=== PATIENT | male | born 1970 | race Caucasian/White ===

== ENCOUNTER 2018-11-02 11:28 | Emergency (ER) | payer BC ==
--- OUTSIDE RECORDS SUMMARY | 2018-11-02 11:35 | XMS REPORT | Continuity of Care Document ---
:1970 External Reference #:[id number] Author Name Irina Hawkinslyn Care Team Providers Name Role Phone Remberto Do NP Primary Care Physician Unavailable Payers Date Identification Numbers Payment Provider Subscriber Effective: 2016 Policy Number: [id number] BS Emile Manzanares PayID: [id number] [address] [address] [place] [address] Effective: 2013 Policy Number: [id number] BS Emile Manzanares Expires: 2016 PayID: [id number] [address] [address] [place] Bishop [address] Expires: 2015 Policy Number: [id number] BS Of DIAN Manzanares PayID: [id number] [address] [address] [place] [address] Problems Active Problems Provider Date Shoulder joint pain Levar Amaro MD Onset: 06/30/2015 Essential hypertension Remberto Do NP Onset: 07/28/2017 Gout Remberto Do NP Onset: 07/28/2017 Obstructive sleep apnea syndrome Judy Youngblood DNP, RN, MEDIA RELATIONS SPECIALIST-BC Onset: Family History Date Family Member(s) Observation Comments General Diabetes Type II Mother and Grandfather Father Seizure Disorder Father Blood clots Father Snoring Mother Diabetes Type II Mother Hypertension Social History Type Date Description Comments Sex Unknown Marital Status Lives With Lives With Son In college Lives With 2 dogs 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 Tobacco Use Start: Unknown Light tobacco smoker 8 per day (10 or fewer cigarettes/day) Smoking Status Reviewed: 10/07/18 Light tobacco smoker 8 per day (10 or fewer cigarettes/day) ETOH Use Drinks 2 Alcoholic 1-3 Beverages Per Week Tobacco Use Start: Unknown Light tobacco smoker about 8 cigs per (10 or fewer day, started 2002 cigarettes/day) Recreational Drug Use Sporadically uses Helps with sleep Marijuana Exercise Type/Frequency Exercises regularly Exercise Type/Frequency Running 4-5x per week Exercise Type/Frequency Hiking, hunting 1-2x per week, seasonal, more in summer Exercise Type/Frequency Yoga 3-4x per week Allergies, Adverse Reactions, Alerts Description No Known Drug Allergies Medications Active Medications SIG Qnty Indications Ordering Date Provider Mandibular please fabricate G47.33 Melly 07/08/2018 Advancement Device mandibular advance CAROLE Wallace device for mild Device sleep apnea Fluoxetine HCL take 1 and 1/2 135tabs F32.89 Remberto Do NP 06/30/2017 20mg tablets by mouth Tablets one time daily Omeprazole 1 by mouth every 30caps K21.9 Kory Waterman, 12/13/2016 20mg day as needed for M.D. Capsules DR jones Fluticasone Use 2 Sprays In 16units R09.81 Remberto Do NP 10/04/2016 Propionate Each Nostril One 50mcg/Act Time A Day as Suspension needed Indomethacin take one by mouth 150caps Kory Waterman, 09/07/2016 25mg in the morning, M.D. Capsules one by mouth at noon, one by mouth at dinner time, and one by mouth at bedtime as needed Allopurinol take one 90tabs Rehan Borja, 12/06/2010 300mg capsule/tablet MEDIA RELATIONS SPECIALIST Tablets daily by mouth Allopurinol take 2 180tabs Kory Waterman, 12/06/2010 100mg capsule/tablet M.D. Tablets daily by mouth (in addition to the 300mg tab of allopurinol) Cortes Pills As needed Unknown Cortes Juice As needed Unknown Uricel OTC prn Unknown History Medications Amlodipine Besylate 1 by mouth I10 Remberto Do NP 07/28/2017 - 5mg every day 07/28/2017 Tablets Amlodipine Besylate 1 by mouth 30tabs I10 Remberto Do NP 06/30/2017 - 5mg every day 07/28/2017 Tablets Clotrimazole apply twice 28.350gm B35.3 Kory Waterman 12/13/2016 - Anti-Fungal daily as needed M.D. 10/29/2017 1% Cream Doxycycline Hyclate Kory Figueredo, 10/02/2016 - 10/04/[address] Powell 1 po bid 60tabs Jairo Chowdary, 12/06/2010 - 500mg Tablets M.D. 06/28/2015 Advil as needed Unknown - 200mg Capsules 10/04/2016 Vital Signs Date Vital Result Comment 10/07/2018 2:26pm Height 68.25 inches 5'8.25" Weight 200.38 lb Heart Rate 70 /min BP Systolic Sitting 132 mmHg Lue large cuff BP Diastolic Sitting 94 mmHg Lue large cuff Respiratory Rate 12 /min O2 % BldC Oximetry 97 % BMI (Body Mass Index) 30.2 kg/m2 07/08/2018 9:52am Height 68.25 inches 5'8.25" Weight 194.38 lb Heart Rate 66 /min BP Systolic Sitting 110 mmHg Rue large cuff BP Diastolic Sitting 82 mmHg Rue large cuff Respiratory Rate 16 /min O2 % BldC Oximetry 96 % On Ra BMI (Body Mass Index) 29.3 kg/m2 05/13/2018 1:14pm Height 68.25 inches 5'8.25" Weight 200.00 lb Heart Rate 73 /min BP Systolic 132 mmHg BP Diastolic 84 mmHg O2 % BldC Oximetry 97 % BMI (Body Mass Index) 30.2 kg/m2 01/07/2018 10:22am Height 68.25 inches 5'8.25" Weight 188.50 lb Heart Rate 56 /min BP Systolic Sitting 110 mmHg Rue regular cuff BP Diastolic Sitting 76 mmHg Rue regular cuff Respiratory Rate 12 /min O2 % BldC Oximetry 97 % BMI (Body Mass Index) 28.4 kg/m2 12/11/2017 8:59am Height 68.25 inches 5'8.25" Weight 194.00 lb Heart Rate 68 /min BP Systolic Sitting 111 mmHg BP Diastolic Sitting 71 mmHg Respiratory Rate 14 /min Pain Level 0 BMI (Body Mass Index) 29.3 kg/m2 11/17/2017 10:35am Height 68.25 inches 5'8.25" Weight 194.00 lb Heart Rate 60 /min BP Systolic Sitting 120 mmHg BP Diastolic Sitting 78 mmHg Respiratory Rate 14 /min O2 % BldC Oximetry 97 % BMI (Body Mass Index) 29.3 kg/m2 10/29/2017 3:36pm Height 68.25 inches 5'8.25" Weight 193.25 lb Heart Rate 96 /min BP Systolic 123 mmHg BP Diastolic 79 mmHg Body Temperature 97.7 F O2 % BldC Oximetry 97 % BMI (Body Mass Index) 29.2 kg/m2 10/14/2017 2:33pm Height 68.25 inches 5'8.25" Weight 195.50 lb Heart Rate 70 /min BP Systolic Sitting 130 mmHg BP Diastolic Sitting 92 mmHg Respiratory Rate 16 /min O2 % BldC Oximetry 97 % On Ra BMI (Body Mass Index) 29.5 kg/m2 Neck Circumference in inches 16.5 08/28/2017 2:33pm Weight 203.00 lb Heart Rate 80 /min BP Systolic 120 mmHg BP Diastolic 70 mmHg Body Temperature 97.9 F O2 % BldC Oximetry 93 % 07/28/2017 2:38pm Height 68.25 inches 5'8.25" Weight 207.50 lb Heart Rate 81 /min BP Systolic 120 mmHg BP Diastolic 66 mmHg Body Temperature 97.9 F O2 % BldC Oximetry 94 % BMI (Body Mass Index) 31.3 kg/m2 06/30/2017 4:03pm Weight 203.50 lb Heart Rate 94 /min BP Systolic 152 mmHg BP Diastolic 97 mmHg BP Systolic Recheck 150 mmHg BP Diastolic Recheck 100 mmHg Body Temperature 97.8 F O2 % BldC Oximetry 95 % 06/23/2017 4:58pm Height 68.25 inches 5'8.25" Weight 207.00 lb Heart Rate 88 /min BP Systolic Sitting 170 mmHg BP Diastolic Sitting 110 mmHg Respiratory Rate 14 /min Pain Level 0 BMI (Body Mass Index) 31.2 kg/m2 03/28/2017 2:09pm Height 68.25 inches 5'8.25" Weight 202.00 lb Heart Rate 92 /min BP Systolic Sitting 156 mmHg BP Diastolic Sitting 100 mmHg BP Systolic Recheck 148 mmHg BP Diastolic Recheck 100 mmHg O2 % BldC Oximetry 97 % BMI (Body Mass Index) 30.5 kg/m2 03/06/2017 3:06pm Height 68.25 inches 5'8.25" Weight 206.25 lb Heart Rate 98 /min BP Systolic Sitting 150 mmHg BP Diastolic Sitting 101 mmHg Respiratory Rate 14 /min Pain Level 1 BMI (Body Mass Index) 31.1 kg/m2 12/13/2016 12:50pm Height 68.25 inches 5'8.25" Weight 197.00 lb Heart Rate 80 /min BP Systolic Sitting 140 mmHg BP Diastolic Sitting 86 mmHg Respiratory Rate 14 /min Pain Level 3 BMI (Body Mass Index) 29.7 kg/m2 11/14/2016 9:54am Height 68.25 inches 5'8.25" Weight 199.38 lb Heart Rate 90 /min BP Systolic Sitting 142 mmHg BP Diastolic Sitting 90 mmHg Respiratory Rate 14 /min Pain Level 3 BMI (Body Mass Index) 30.1 kg/m2 10/04/2016 3:31pm Height 68.25 inches 5'8.25" Weight 200.00 lb Heart Rate 90 /min BP Systolic Sitting 134 mmHg BP Diastolic Sitting 88 mmHg Body Temperature 97.1 F O2 % BldC Oximetry 96 % BMI (Body Mass Index) 30.2 kg/m2 06/30/2015 1:05pm Height 69 inches 5'9" Weight 185.00 lb BP Systolic 120 mmHg BP Diastolic 82 mmHg BMI (Body Mass Index) 27.3 kg/m2 02/18/2011 4:12pm Height 69 inches 5'9" Weight 188.00 lb Heart Rate 72 /min BP Systolic 110 mmHg BP Diastolic 70 mmHg BMI (Body Mass Index) 27.8 kg/m2 Results Test Date Facility Test Result H/L Range Note Laboratory test 01/07/2018 [facility] Uric Acid 10.2 mg/dL High 4.4-7.6 [address] [place] [address] [phone] CBC Auto Diff 01/07/2018 [facility] White Blood 5.5 10^3/uL N 3.5-10.[address] [place] [address] [phone] Red Blood Count 5.05 10^6/uL N 4.00-5.40 Hemoglobin 16.2 g/dL N 14.0-18.0 Hematocrit 46 % N 42-52 Mean Corpuscular Volume 92 fL N 80-94 Mean Corpuscular Hemoglobin 32 pg High 27-31 Mean Corpuscular HGB Conc 35 g/dL N 31-36 Red Cell Distribution Width 14 % N 10.5-15 Platelet Count 262 10^3/uL N 150-450 Mean Platelet Volume 6.9 um3 Low 7.4-10.4 Abs Neutrophils 3.2 10^3/uL N 1.5-7.7 Abs Lymphocytes 1.6 10^3/uL N 1.0-4.8 Abs Monocytes 0.6 10^3/uL N 0-0.8 Abs Eosinophils 0.1 10^3/uL N 0-0.6 Abs Basophils 0 10^3/uL N 0-0.2 Abs Nucleated RBC 0 10^3/uL Granulocyte % 58.0 % N 38-83 Lymphocyte % 28.9 % N 25-47 Monocyte % 10.2 % High 0-7 Eosinophil % 2.1 % N 0-6 Basophil % 0.8 % N 0-2 Nucleated Red Blood Cells % 0 Comp Metabolic Panel 01/07/2018 [facility] Sodium 136 mmol/L N 135-[address] [place] [address] [phone] Potassium 4.3 mmol/L N 3.5-5.0 Chloride 105 mmol/L N 101-111 Co2 Carbon Dioxide 25 mmol/L N 22-32 Anion Gap 6 mmol/L N 2-11 Glucose 106 mg/dL High 70-100 Blood Urea Nitrogen 21 mg/dL N 6-24 Creatinine 1.10 mg/dL N 0.67-1.17 BUN/Creatinine Ratio 19.1 N 8-20 Calcium 9.7 mg/dL N 8.6-10.3 Total Protein 7.1 g/dL N 6.4-8.9 Albumin 4.3 g/dL N 3.2-5.2 Globulin 2.8 g/dL N 2-4 Albumin/Globulin Ratio 1.5 N 1-3 Total Bilirubin 0.70 mg/dL N 0.2-1.0 Alkaline Phosphatase 66 U/L N 34-104 Alt 14 U/L N 7-52 Ast 16 U/L N 13-39 Egfr Non- 71.8 >60 Egfr 86.8 >60 2 Laboratory test 01/07/2018 [facility] Erythrocyte Sed 10 mm/Hr N 0-14 [address] [place] [address] [phone] C Reactive Protein 4.61 mg/L N <8.01 4 Urinalysis Profile 06/06/2017 [facility] Urine Color Yellow [address] [place] [address] [phone] Urine Appearance Clear Urine Specific [place] 1.016 N 1.010-1.030 Urine pH 5.0 N 5-9 Urine Urobilinogen Negative Negative Urine Ketones Negative Negative Urine Protein Negative Negative Urine Leukocytes Negative Negative Urine Blood Negative Negative Urine Nitrite Negative Negative Urine Bilirubin Negative Negative Urine Glucose Negative Negative Laboratory test 06/06/2017 [facility] TSH (Thyroid 1.09 N 0.34 -5.60 finding 101 [facility] Stim Horm) mcIU/[place] [address] [phone] Laboratory test 03/06/2017 [facility] Uric Acid 8.2 mg/dL High 4.4-7.6 finding [address] [place] [address] [phone] Comp Metabolic 03/06/2017 [facility] Sodium 138 mmol/L N 133- 145 Panel 101 [place] [address] [phone] Potassium 4.0 mmol/L N 3.5-5.0 Chloride 104 mmol/L N 101-111 Co2 Carbon Dioxide 27 mmol/L N 22-32 Anion Gap 7 mmol/L N 2-11 Glucose 108 mg/dL High 70-100 Blood Urea Nitrogen 16 mg/dL N 6-24 Creatinine 1.12 mg/dL N 0.67-1.17 BUN/Creatinine Ratio 14.3 N 8-20 Calcium 9.2 mg/dL N 8.6-10.3 Total Protein 6.9 g/dL N 6.4-8.9 Albumin 4.1 g/dL N 3.2-5.2 Globulin 2.8 g/dL N 2-4 Albumin/Globulin Ratio 1.5 N 1-3 Total Bilirubin 0.30 mg/dL N 0.2-1.0 Alkaline Phosphatase 61 U/L N 34-104 Alt 27 U/L N 7-52 Ast 19 U/L N 13-39 Egfr Non- 70.6 N >60 Egfr 90.8 N >60 5 Laboratory test 03/06/2017 [facility] C Reactive 6.42 mg/L High < 5.00 6 finding 101 [facility] [place] [address] [phone] Erythrocyte Sed Rate 14 mm/Hr N 0-14 Laboratory test 11/15/2016 [facility] Uric Acid 9.8 mg/dL High 4.4-7.6 [address] [place] [address] [phone] Lipid Profile 11/15/2016 [facility] Triglycerides 237 mg/dL N 8 (Trig/Chol/HDL) [address] [place] [address] [phone] Cholesterol 165 mg/dL N 9 HDL Cholesterol 29.3 mg/dL N 10 LDL Cholesterol 88 mg/dL N 11 Comp Metabolic 11/15/2016 [facility] Co2 Carbon 27 mmol/L N 22 -[address] [place] [address] [phone] Glucose 98 mg/dL N 70-100 Blood Urea Nitrogen 16 mg/dL N 6-24 Creatinine 1.06 mg/dL N 0.67-1.17 BUN/Creatinine Ratio 15.1 N 8-20 Calcium 9.7 mg/dL N 8.6-10.3 Total Protein 7.1 g/dL N 6.4-8.9 Albumin 4.3 g/dL N 3.2-5.2 Globulin 2.8 g/dL N 2-4 Albumin/Globulin Ratio 1.5 N 1-3 Total Bilirubin 0.70 mg/dL N 0.2-1.0 Alkaline Phosphatase 62 U/L N 34-104 Alt 14 U/L N 7-52 Ast 16 U/L N 13-39 Egfr Non- 75.2 N >60 Egfr 96.7 N >60 12 Sodium 135 mmol/L N 133-145 Potassium 4.4 mmol/L N 3.5-5.0 Chloride 103 mmol/L N 101-111 Anion Gap 5 mmol/L N 2-11 CBC Auto Diff 11/15/2016 [facility] White Blood 5.3 10^3/uL N 3.5-10.[address] [place] [address] [phone] Red Blood Count 5.13 10^6/uL N 4.0-5.4 Hemoglobin 15.8 g/dL N 14.0-18.0 Hematocrit 46 % N 42-52 Mean Corpuscular Volume 90 fL N 80-94 Mean Corpuscular Hemoglobin 31 pg N 27-31 Mean Corpuscular HGB Conc 34 g/dL N 31-36 Red Cell Distribution Width 13 % N 10.5-15 Platelet Count 254 10^3/uL N 150-450 Mean Platelet Volume 7 um3 Low 7.4-10.4 Abs Neutrophils 2.9 10^3/uL N 1.5-7.7 Abs Lymphocytes 1.6 10^3/uL N 1.0-4.8 Abs Monocytes 0.5 10^3/uL N 0-0.8 Abs Eosinophils 0.2 10^3/uL N 0-0.6 Abs Basophils 0 10^3/uL N 0-0.2 Abs Nucleated RBC 0.05 10^3/uL N Granulocyte % 55.0 % N 38-83 Lymphocyte % 31.0 % N 25-47 Monocyte % 9.9 % High 1-9 Eosinophil % 3.6 % N 0-6 Basophil % 0.5 % N 0-2 Nucleated Red Blood Cells % 0.9 N Laboratory test 11/15/2016 [facility] Lyme Disease Positive N Negative [address] [place] [address] [phone] Laboratory test 11/15/2016 [facility] Creatine 114 U/L N 10- 223 [address] Kinase(CK) [place] [address] [phone] Laboratory test 11/15/2016 [facility] C Reactive 8.98 mg/L High < 5.00 [address] [place] [address] [phone] Erythrocyte Sed Rate 18 mm/Hr High 0-14 16 Lyme Western 11/15/2016 [facility] Lyme Disease Negative N Negative Blot [address] [place] [address] [phone] Lyme Disease IgG Bands Present No bands detecte <SEE NOTE> kDa N 17 Lyme Disease IgM Ab WB Negative N Negative Lyme Disease IgM Bands Present No bands detecte <SEE NOTE> kDa N 18 Lyme Disease Interpretation See Comment N 19 1 Please check labs today 2 Because ethnic data is not always readily available, this report includes an eGFR for both -Americans and non- Americans. The National Kidney Disease Education Program (NKDEP) does not endorse the use of the MDRD equation for patients that are not between the ages of 18 and 70, are , have extremes of body size, muscle mass, or nutritional status, or are non- or non-. According to the National Kidney Foundation, irrespective of diagnosis, the stage of the disease is based on the level of kidney function: Stage Description GFR(mL/min/1.73 m(2)) 1 Kidney damage with normal or decreased GFR 90 2 Kidney damage with mild decrease in GFR 60-89 3 Moderate decrease in GFR 30-59 4 Severe decrease in GFR 15-29 5 Kidney failure <15 (or dialysis) 3 Please check labs today 4 Please check labs today 5 Because ethnic data is not always readily available, this report includes an eGFR for both -Americans and non- Americans. The National Kidney Disease Education Program (NKDEP) does not endorse the use of the MDRD equation for patients that are not between the ages of 18 and 70, are , have extremes of body size, muscle mass, or nutritional status, or are non- or non-. According to the National Kidney Foundation, irrespective of diagnosis, the stage of the disease is based on the level of kidney function: Stage Description GFR(mL/min/1.73 m(2)) 1 Kidney damage with normal or decreased GFR 90 2 Kidney damage with mild decrease in GFR 60-89 3 Moderate decrease in GFR 30-59 4 Severe decrease in GFR 15-29 5 Kidney failure <15 (or dialysis) 6 Acute inflammation: >10.00 7 FASTING 10 HOUR All labs last week october 8 Desirable <150 Borderline high 150-199 High 200-499 Very High >500 9 Desirable <200 Borderline high 200-239 High >239 10 Low <40 Desirable: 40-60 High: >60 11 Desirable: <100 mg/dL Near Optimal: 100-129 mg/dL Borderline High: 130-159 mg/dL High: 160-189 mg/dL Very High: >189 mg/dL 12 Because ethnic data is not always readily available, this report includes an eGFR for both -Americans and non- Americans. The National Kidney Disease Education Program (NKDEP) does not endorse the use of the MDRD equation for patients that are not between the ages of 18 and 70, are , have extremes of body size, muscle mass, or nutritional status, or are non- or non-. According to the National Kidney Foundation, irrespective of diagnosis, the stage of the disease is based on the level of kidney function: Stage Description GFR(mL/min/1.73 m(2)) 1 Kidney damage with normal or decreased GFR 90 2 Kidney damage with mild decrease in GFR 60-89 3 Moderate decrease in GFR 30-59 4 Severe decrease in GFR 15-29 5 Kidney failure <15 (or dialysis) 13 Not diagnostic. Supplemental testing ordered by reflex. Test Performed by: [address] [address] 14 Please check this week 15 Acute inflammation: >10.00 16 Please check this week 17 No bands detected 18 No bands detected 19 Specific serologic response to B. burgdorferi infection is not detected, but cannot rule out early infection during which low or undetectable antibody levels to B. burgdorferi may be present. If clinically indicated, a new serum specimen should be submitted in 7-14 days. ADDITIONAL INFORMATION CDC criteria require >=5 bands for IgG or >=2 bands for IgM for the Immunoblot to be considered positive. Bands (e.g.,p41) may be detected in patients without Lyme disease, and patterns not meeting the CDC criteria should be interpreted with caution. Immunoblot should be ordered only on specimens that are positive or equivocal by a FDA-licensed Lyme disease antibody screening test (e.g., EIA). Test Performed by: [address] [address] Procedures Date Code Description Status 10/20/2017 95[address] Sleep Study Unattended,HRT Rate,Oxygen Sat,Resp Completed Effort/Airflow Encounters Type Date Location Provider Dx Diagnosis Office Visit 07/08/2018 [facility] Melly G47.33 Obstructive sleep 9:30a Sleep Services Of CAROLE Wallace apnea (adult) Debt Recovery Officer (pediatric) Office Visit 05/13/2018 [facility] Remberto Do NP I10 Essential (primary ) 1:40p Medicine hypertension F32.89 Other specified depressive episodes Z13.220 Encounter for screening for lipoid disorders Z13.1 Encounter for screening for diabetes mellitus Office Visit 01/07/2018 [facility] Judy G47.33 Obstructive sleep 10:30a Sleep Services Of ADRIANNA Youngblood, RN, apnea (adult) [facility] MEDIA RELATIONS SPECIALIST-BC (pediatric) R68.2 Dry mouth, unspecified Z68.28 Body mass index (BMI) 28.0-28.9, adult Office Visit 12/11/2017 9:00a Rheumatology Kory M10.9 Gout, unspecified Services Of Pattie Waterman M.D. Z79.899 Other intermediate designer (current) drug therapy R70.0 Elevated erythrocyte sedimentation rate R79.82 Elevated C-reactive protein (CRP) Office Visit 11/17/2017 10:30a Pulmonology And Charity G47.33 Obstructive sleep Sleep Services Of MD Paige apnea (adult) [facility] (pediatric) Office Visit 10/29/2017 3:40p [facility] Remberto Ernestina, I10 Essential Medicine AGRICULTURE INSTRUCTOR (primary) hypertension F32.89 Other specified depressive episodes Office Visit 10/14/2017 3:00p Pulmonology [facility] Sleep Charity Paige, R06.[address] [facility] R53.83 Other fatigue Office Visit 08/28/2017 2:40p [facility] Remberto Ernestina, I10 Essential ( primary) Medicine AGRICULTURE INSTRUCTOR hypertension F32.89 Other specified depressive episodes R06.83 Snoring R40.0 Somnolence Office Visit 07/28/2017 2:40p [facility] Remberto Ernestina, I10 Essential ( primary) Medicine AGRICULTURE INSTRUCTOR hypertension F32.89 Other specified depressive episodes E66.8 Other obesity Office Visit 06/30/2017 4:00p [facility] Remberto Ernestina, I10 Essential ( primary) Medicine AGRICULTURE INSTRUCTOR hypertension F32.89 Other specified depressive episodes Office Visit 06/23/2017 4:20p Rheumatology Kory M10.9 Gout, unspecified Services Of Pattie Waterman M.D. Z79.899 Other fci (current) drug therapy R70.0 Elevated erythrocyte sedimentation rate R79.82 Elevated C-reactive protein (CRP) Office Visit 03/28/2017 2:00p [facility] Remberto Ernestina, AGRICULTURE INSTRUCTOR Z00.00 Encntr for Medicine general adult medical exam w/o abnormal findings M10.9 Gout, unspecified I10 Essential (primary) hypertension F17.210 Nicotine dependence, cigarettes, uncomplicated Office Visit 03/06/2017 3:00p Rheumatology Kory M10.9 Gout, unspecified Services Of Pattie Waterman M.D. Z79.899 Other intermediate designer (current) drug therapy R79.82 Elevated C-reactive protein (CRP) R70.0 Elevated erythrocyte sedimentation rate Office Visit 12/13/2016 12:40p Rheumatology Kory M10.9 Gout, unspecified Services Of Pattie Waterman M.D. Z79.899 Other intermediate designer (current) drug therapy B35.3 Tinea pedis K21.9 Gastro-esophageal reflux disease without esophagitis R79.82 Elevated C-reactive protein (CRP) R70.0 Elevated erythrocyte sedimentation rate Office Visit 11/14/2016 10:00a Rheumatology Kory M10.9 Gout, unspecified Services Of Pattie Waterman M.D. Z79.899 Other fci (current) drug therapy M79.672 Pain in left foot M79.671 Pain in right foot K30 Functional dyspepsia F17.210 Nicotine dependence, cigarettes, uncomplicated Office Visit 10/04/2016 3:00p [facility] Remberto Do M10.9 Gout, unspecified Medicine AGRICULTURE INSTRUCTOR Z13.220 Encounter for screening for lipoid disorders Z13.1 Encounter for screening for diabetes mellitus W57.xxxA Bit/stung by nonvenom insect & oth nonvenom arthropods, init R09.81 Nasal congestion Office Visit 06/30/2015 1:00p Orthopedic Services Levar Amaro, M25.511 Pain in right Of C.MRoula VALDOVINOS shoulder Office Visit 02/18/2011 4:00p Rheumatology Jairo Chowdary, 274.9 Gout Unspec Services Of Pattie Campoverde Plan of Treatment Future Appointment(s):12/07/2018 9:00 am - Judy Youngblood DNP, RN, TIMO-BC at [facility]11/13/2018 1:00 pm - Remberto Do NP at [facility] Internal [place]13/22/2019 - Judy Youngblood DNP, RN, TIMO-BCG47.33 Obstructive sleep apnea (adult) (pediatric)Comments:Sleep Apnea - AHI 10.8/hour , shanel oxygen 82 % (<90% 30 minutes)Follow up:2 monthsRecommendations: Continue PAP device, Benefitting and compliant with treatment. Will adjust setting to 6-10 cm and you should replace the Airtouch cushion every 4-6 weeks. Meet with your dentist to discuss the oral appliance/mandibular advancement device (MAD). Cleaning Wipe off mask cushion daily (baby wipe-no scent, or warm water). Do not submerge the foam cushion in water. Clean mask, tubing, filter, and water chamber weekly in mild no scent dish soap and water. Hang to dry. If you have any sleepiness while driving you MUST avoid operating a vehicle or machinery. If you have difficulty with your equipment, or need to replace your mask or hoses, please contact your homecare agency. A weight change of 20 pounds or more may have an effect on your equipment; if you are experiencing problems please call for anappointment. If you have any further questions, please call the [facility] at [phone].
[2018-11-02 11:50] VITALS: BP 143/96
--- NOTE | 2018-11-02 12:00 | UC ---
Abdominal Pain Male HPI - HPI Summary HPI Summary: 48 yo male presents with epigastric pain. He tells me that around 0300 on 10/31 he woke up in the middle of the night with epigastric pain and nausea that was quite severe. His pain continued, but lessened throughout the day. He had a BM and noted that his stools were palumbo in color - he has never had this before. He mentions that he does suffer from acid reflux, but these symptoms feel different. His pain continued yesterday and today, but less so. He still feels nauseous, but has not vomited. He states that a few years ago he had similar discomfort and an US of his gallbladder was performed, but was negative per pt. He denies SOB, chest pain, diarrhea, dysuria, or blood in stool. - History of Current Complaint Chief Complaint: UCGI Stated Complaint: STOMACH PAIN Time Seen by Provider: 11/02/18 11:59 Hx Obtained From: Patient Onset/Duration: Sudden Onset Severity Initially: Severe Severity Currently: Moderate Pain Intensity: 8 Pain Scale Used: 0-10 Numeric - Allergies/Home Medications Allergies/Adverse Reactions: Allergies Allergy/AdvReac Type Severity Reaction Status Date / Time No Known Allergies Allergy Verified 11/02/18 12:46 Home Medications: Home Medications Allopurinol 500 mg PO DAILY 11/02/18 [History Confirmed 11/02/18] Fluoxetine [Fluoxetine HCl] 20 mg PO DAILY 11/02/18 [History Confirmed 11/02/18] Omeprazole 20 mg PO DAILY 11/02/18 [History Confirmed 11/02/18] Uricel 1 tab PO DAILY PRN 11/02/18 [History] PMH/Surg Hx/FS Hx/Imm Hx - Additional Past Medical History Additional PMH: Gout GI/ History: Gastroesophageal Reflux Psychological History: Anxiety, Depression - Surgical History Surgical History: Yes Surgery Procedure, Year, and Place: HERNIA REPAIR - Family History Known Family History: Positive: Hypertension - Social History Occupation: Employed Full-time Lives: With Family Alcohol Use: Occasionally Substance Use Type: Marijuana Smoking Status (MU): Former Smoker Type: Cigarettes Amount Used/How Often: 6 cig/day Review of Systems All Other Systems Reviewed And Are Negative: Yes Constitutional: Positive: Negative Skin: Positive: Negative Respiratory: Positive: Negative Cardiovascular: Positive: Negative Gastrointestinal: Positive: Abdominal Pain, Nausea, Other - Palumbo colored stools Genitourinary: Positive: Negative Neurovascular: Positive: Negative Neurological: Positive: Negative Psychological: Positive: Negative Physical Exam - Summary Physical Exam Summary: GENERAL: NAD. WDWN. No pain distress. SKIN: No rashes, sores, lesions, or open wounds. NECK: Supple. Nontender. No lymphadenopathy. CHEST: CTAB. No r/r/w. No accessory muscle use. Breathing comfortably and in no distress. CV: RRR. Without m/r/g. Pulses intact. Cap refill <2seconds ABDOMEN: Mild TTP epigastric region and RUQ. Soft. No distention or guarding. No CVA tenderness. Bowel sounds present. Negative hood sign. NEURO: Alert. PSYCH: Age appropriate behavior. Triage Information Reviewed: Yes Vital Signs: Initial Vital Signs Temp 97.7 F 11/02/18 11:42 Pulse 83 11/02/18 11:42 Resp 18 11/02/18 11:42 BP 143/96 11/02/18 11:42 Pulse Ox 98 11/02/18 11:42 Vital Signs Reviewed: Yes Abd Pain Male Course/Dx - Course Course Of Treatment: Discussed obtaining labwork and ultrasound of gallbladder/liver today, but would not have results for at least 2 days. I discussed that his symptoms are suspicious for a biliary pathology such as hepatitis, pancreatitis, or cholecystitis. He preferred to go to the ER for further evaluation at this time , which I believe is most appropriate. He will drive himself. - Differential Dx/Clinical Impression Provider Diagnosis: Epigastric pain, Light stools Discharge - Sign-Out/Discharge Documenting (check all that apply): Patient Departure All imaging exams completed and their final reports reviewed: No Studies - Discharge Plan Condition: Stable Disposition: HOME-RECOMMEND TO ED Referrals: Mata Rodriguez MD [Primary Care Provider] - Additional Instructions: Please go to the ER for further evaluation of your abdominal pain and carlos colored stools - Billing Disposition and Condition Condition: STABLE Disposition: Home-Recommend to ED
== END 2018-11-02 12:24 | disposition home health service (06) ==
LOC: UCEAST 11:28
DX: R10.13 Epigastric pain (principal); K21.9 Gastro-esophageal reflux disease without esophagitis; F41.9 Anxiety disorder, unspecified; F32.9 Major depressive disorder, single episode, unspecified; Z87.891 Personal history of nicotine dependence
CPT/HCPCS: 99212; G0463

== ENCOUNTER 2018-11-02 12:40 | Emergency (ER) | payer BC ==
[2018-11-02 15:12] LABS: ABS Eosinophils 0.1 10^3/ul (0-0.6); ABS Lymphocytes 1.5 10^3/ul (1.0-4.8); ABS Monocytes 0.7 10^3/ul (0-0.8); Eosinophil % 1.8 %; Hematocrit 46 % (42-52); Hemoglobin 16.1 g/dL (14.0-18.0); Lymphocyte % 27.5 %; Mean Corpuscular HGB Conc 35 g/dL (31-36); Mean Corpuscular Hemoglobin 32 pg (27-31); Mean Corpuscular Volume 90 fL (80-94); Mean Platelet Volume 6.9 fL (7.4-10.4); Nucleated Red Blood Cells % 0.1; Platelet Count 191 10^3/uL (150-450); Red Blood Count 5.07 10^6 /uL (4.18-5.48); Red Cell Distribution Width 13 % (10-15); White Blood Count 5.3 10^3/uL (3.5-10.8)
[2018-11-02] MEDS ORDERED: Ondansetron INJ* 2 MG/ML VIAL IV ONE (15:24)
[2018-11-02] MEDS ORDERED: NS 0.9% 1000 ML** 1,000 ML IV ONE (15:24)
--- NOTE | 2018-11-02 15:26 | ED ---
Abdominal Pain/Male - HPI Summary HPI Summary: This pt is a 48 y/o male [facility] upper abdominal pain since 4 days ago. Pt reports he woke up 4 days ago at 03:15 with severe heart burn and indigestion pain. Pt describes gurgling and rumbling in his abd. He notes he felt nauseous. Denies vomiting. He states over the past few days he has been feeling clammy, has been belching, and had a subjective fever (he did not take his temperature). Additionally pt reports that since 3 days ago his stools have been carlos/white in color. He currently rates his abd pain 4/10 in severity. Pt reports 2 years ago he had similar pain (but without different colored stool ) and had an US in [place] that was normal. PMHx: repaired hernia. He admits to drinking 1-2 glasses of hard cider but not every day. - History of Current Complaint Chief Complaint: EDAbdPain Stated Complaint: ABD PAIN Time Seen by Provider: 11/02/18 14:33 Hx Obtained From: Patient Onset/Duration: Lasting Days, Still Present Timing: Lasting Days Severity Currently: Moderate Pain Intensity: 4 Pain Scale Used: 0-10 Numeric Location: Epigastric Radiates: Yes Radiates to: Other - left Character: Other: - "indigestion" Aggravating Factor(s): Nothing Alleviating Factor(s): Nothing Associated Signs And Symptoms: Positive: Nausea. Negative: Fever, Cough, Chest Pain, Dizzy, Urinary Symptoms, Vomiting - Allergies/Home Medications Allergies/Adverse Reactions: Allergies Allergy/AdvReac Type Severity Reaction Status Date / Time No Known Allergies Allergy Verified 11/02/18 12:46 PMH/Surg Hx/FS Hx/Imm Hx Endocrine/Hematology History: Denies: Hx Diabetes Cardiovascular History: Reports: Hx Hypertension History: Reports: Hx Kidney Stones - Surgical History Surgical History: Yes Surgery Procedure, Year, and Place: HERNIA REPAIR Infectious Disease History: No Infectious Disease History: Denies: Traveled Outside the [place] in Last 30 Days - Family History Known Family History: Positive: Diabetes - Social History Alcohol Use: Occasionally Substance Use Type: Reports: Marijuana Smoking Status (MU): Light Every Day Tobacco Smoker Type: Cigarettes Amount Used/How Often: 6 cig/day Review of Systems Constitutional: Other - POSITIVE: clammy Positive: Chills. Negative: Fever Negative: Erythema Negative: Sore Throat Negative: Chest Pain Negative: Shortness Of Breath, Cough Gastrointestinal: Other - POSITIVE: carlos/white colored stools, indigestion, belching Positive: Abdominal Pain, Nausea. Negative: Vomiting Negative: dysuria, hematuria Negative: Myalgia, Edema Negative: Rash Neurological: Other - NEGATIVE: dizziness All Other Systems Reviewed And Are Negative: Yes Physical Exam - Summary Physical Exam Summary: Constitutional: Well-developed, Well-nourished, Alert. (-) Distressed Skin: Warm, Dry HENT: Normocephalic; Atraumatic Eyes: Conjunctiva normal Neck: Musculoskeletal ROM normal neck. (-) JVD, (-) Stridor, (-) Tracheal deviation Cardio: Rhythm regular, rate normal, Heart sounds normal; Intact distal pulses; The pedal pulses are 2+ and symmetric. Radial pulses are 2+ and symmetric. (-) Murmur Pulmonary/Chest wall: Effort normal. (-) Respiratory distress, (-) Wheezes, (-) Rales Abd: Soft, (+) Mild epigastric tenderness, (-) Distension, (-) Guarding, (-) Rebound Musculoskeletal: (-) Edema Lymph: (-) Cervical adenopathy Neuro: Alert, Oriented x3 Psych: Mood and affect Normal Triage Information Reviewed: Yes Vital Signs On Initial Exam: Initial Vitals Temp Pulse Resp BP Pulse Ox 98.8 F 82 18 148/107 97 11/02/18 12:43 11/02/18 12:43 11/02/18 12:43 11/02/18 12:43 11/02/18 12:43 Vital Signs Reviewed: Yes Diagnostics - Vital Signs Vital Signs Temp Pulse Resp BP Pulse Ox 11/02/18 14:31 74 97 11/02/18 14:30 73 144/94 96 11/02/18 12:43 98.8 F 82 18 148/107 97 - Laboratory Lab Results: Lab Results 11/02/18 Range/Units 14:57 WBC 5.3 (3.5-10.8) 10^3/uL RBC 5.07 (4.18-5.48) 10^6 /uL Hgb 16.1 (14.0-18.0) g/dL Hct 46 (42-52) % MCV 90 (80-94) fL MCH 32 H (27-31) pg MCHC 35 (31-36) g/dL RDW 13 (10-15) % Plt Count 191 (150-450) 10^3/uL MPV 6.9 L (7.4-10.4) fL Neut % (Auto) 56.5 % Lymph % (Auto) 27.5 % [place] % (Auto) 14.0 % Eos % (Auto) 1.8 % Baso % (Auto) 0.2 % Absolute Neuts (auto) 3.0 (1.5-7.7) 10^3/ul Absolute Lymphs (auto) 1.5 (1.0-4.8) 10^3/ul Absolute Monos (auto) 0.7 (0-0.8) 10^3/ul Absolute Eos (auto) 0.1 (0-0.6) 10^3/ul Absolute Basos (auto) 0.0 (0-0.2) 10^3/ul Absolute Nucleated RBC 0.0 10^3/ul Nucleated RBC % 0.1 Result Diagrams: 11/02/18 14:57 11/02/18 14:57 Lab Statement: Any lab studies that have been ordered have been reviewed, and results considered in the medical decision making process. - CT Abdomen/Pelvis CT CT Interpretation Completed By: Radiologist Summary of CT Findings: IMPRESSION: 1. The appendix is unremarkable. 2. No other acute CT pathology. Dr. Napier has reviewed this report. - Ultrasound No standard instances Ultrasound Interpretation Completed By: Radiologist Summary of Ultrasound Findings: Gallbladder US IMPRESSION: No acute sonographic pathology of the visualized portion of the abdomen. Dr. Napier has reviewed this report. Re-Evaluation - Re-Evaluation First Eval Re-Evaluation Time: 18:59 Comment: Pt is feeling better. He has no abdominal pain. On repeat exam his abdomen is nontender. Second Eval Re-Evaluation Time: 19:30 Comment: Reviewed CT results with pt. He will be discharged home. Abdominal Pain Male Course/Dx - Course Assessment/Plan: Pt is a 48 y/o male presenting to [facility] c/o upper abdominal pain since 4 days ago. Pt reports he woke up 4 days ago at 03:15 with severe heart burn and indigestion pain. Pt describes gurgling and rumbling in his abd. He notes he felt nauseous. Denies vomiting. He states over the past few days he has been feeling clammy, has been belching, and had a subjective fever (he did not take his temperature). Additionally pt reports that since 3 days ago his stools have been carlos/white in color. He currently rates his abd pain 4/10 in severity. Lab results are unremarkable except for CRP of 28. Gallbladder US shows no acute sonographic pathology of the visualized portion of the abdomen. On re-eval pt is feeling better. He has no abdominal pain. On repeat exam his abdomen is nontender. LFTs are normal. CT of abdomen/pelvis shows 1. The appendix is unremarkable. 2. No other acute CT pathology. Pt will be discharged home with follow up from his PCP in 2-3 days. - Diagnoses Provider Diagnoses: Acholic stool, Upper abdominal pain Discharge - Sign-Out/Discharge Documenting (check all that apply): Patient Departure - Discharge home Patient Received Moderate/Deep Sedation with Procedure: No - Discharge Plan Condition: Stable Disposition: HOME Patient Education Materials: Acute Abdominal Pain (ED) Referrals: Remberto Do NP [Primary Care Provider] - Additional Instructions: Follow up with your primary care provider in 2-3 days. RETURN TO THE EMERGENCY DEPARTMENT FOR CHANGING OR WORSENING SYMPTOMS. - Attestation Statements Document Initiated by Scribe: Yes Documenting Scribe: Nancy Urban Provider For Whom Emily is Documenting (Include Credential): Jann Napier MD Scribe Attestation: Nancy Peterson, scribed for Jann Napier MD on 11/02/18 at 1929. Status of Scribe Document: Ready
[2018-11-02 16:03] LABS: Albumin 4.4 g/dL (3.2-5.2); Albumin/Globulin Ratio 1.3 (1-3); BUN/Creatinine Ratio 22.5 (8-20); C Reactive Protein 28.53 mg/L (<8.01); Calcium 9.5 mg/dL (8.6-10.3); EGFR African American 94.3 (>60); Globulin 3.3 g/dL (2-4); Potassium 3.8 mmol/L (3.5-5.0); Total Bilirubin 0.4 mg/dL (0.2-1.0); Total Protein 7.7 g/dL (6.4-8.9)
[2018-11-02] MEDS ORDERED: Iohexol 300* (CONTRAST) 10 ML SDV IV ONE (16:52)
[2018-11-02 18:52] LABS: Urine Appearance Clear; Urine Bacteria Absent (Absent); Urine Bilirubin Negative (Negative); Urine Blood 1+ (Negative); Urine Color Yellow; Urine Glucose Negative (Negative); Urine Ketones Trace (Negative); Urine Nitrite Negative (Negative); Urine Protein Negative (Negative); Urine Red Blood Cell Trace(0-2/hpf) (Absent); Urine Specific Gravity 1.016 (1.010-1.030); Urine Urobilinogen Negative (Negative); Urine White Blood Cell Absent (Absent)
[2018-11-02 19:41] VITALS: BP 145/96
== END 2018-11-02 19:40 | disposition home or self-care (01) ==
LOC: ED 12:40
DX: R19.5 Other fecal abnormalities (principal); R10.13 Epigastric pain; R11.0 Nausea; F17.210 Nicotine dependence, cigarettes, uncomplicated
CPT/HCPCS: 36415; 74177; 76705; 80053; 81003; 81015; 83605; 83690; 85025; 86140; 96361; 96374; 99283; J2405; Q9967